=== PATIENT | male | born 1980 ===

== ENCOUNTER → 2023-07-14 12:50 | Outpatient (BNVA) | payer OTHER, SELFPAY | PROVIDERS: Referring Provider Emergency Medicine Emergency Medical Services; Visit Provider Student in an Organized Health Care Education/Training Program | DX: S83.8X1A Sprain of other specified parts of right knee, initial encounter; X58.XXXA Exposure to other specified factors, initial encounter | CPT/HCPCS: 73560; 73565; 99203 ==

== ENCOUNTER 2023-07-31 16:23 | Outpatient (CLI) | payer OTHER, SELFPAY ==
--- NOTE | 2023-07-31 16:45 | MR_ITS ---
WS: [id number] MRI RIGHT KNEE HISTORY: RIGHT knee pain for 4 months. No injury. COMPARISON: Radiographs 07/14/2023 Anterior cruciate ligament: Intact. Posterior cruciate ligament: Intact. Medial collateral ligament: Intact. Posterior lateral corner structures: Intact. Medial menisci: Intact. Normal signal, size and shape. Lateral meniscus: Intact. Normal signal, size and shape. Extensor mechanism: Distal quadriceps tendon and patellar tendons are intact. Fluid and soft tissue: No joint effusion. No Zendejas's cyst. Osseous and articular structures: Patellofemoral compartment: Normal. Medial compartment: Minimal narrowing the medial compartment. There is minimal chondromalacia along t he weightbearing surface of the medial femoral condyle. This is a full-thickness defect but only judson ures approximately 2 mm. Lateral compartment: There is minimal fraying along the articular surfaces. No full-thickness cartila ge defect. No marrow edema. IMPRESSION: 1. Normal ACL. 2. No meniscal tear. 3. 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 Full-thickness 2 mm defect wi thin the cartilage.
== END 2023-07-31 16:24 | disposition home or self-care (01) ==
LOC: RAD 16:24
PROVIDERS: PCP Emergency Medicine Emergency Medical Services; Visit Provider Student in an Organized Health Care Education/Training Program
DX: M25.569 Pain in unspecified knee (principal); S83.8X9A Sprain of other specified parts of unspecified knee, initial encounter; M94.261 Chondromalacia, right knee; X58.XXXA Exposure to other specified factors, initial encounter
CPT/HCPCS: 73721

== ENCOUNTER 2024-10-31 11:42 | Emergency (ER) | payer OTHER, SELFPAY ==
[2024-10-31 12:21] VITALS: BP 125/84; PULSE 72; RESP 18; TEMP 36.6; O2SAT 94; BMI 31.0
--- NOTE | 2024-10-31 12:36 | PC.PHAR ---
patient is [facility], sent fax at [phone]
--- NOTE | 2024-10-31 12:39 | W.ED.EXTPRO ---
HPI - Extremity Problem General: Chief complaint: Extremity Injury, Upper Stated complaint: Left Shoulder Time Seen by Provider: 10/31/24 12:36 History of Present Illness: Patient is a 44-year-old male who states he woke up this morning having pain in the left side of the neck into the left trapezius muscle. Patient states he is kind of holding his arm at a 90 degree angle which helps but if he tries to raise his arm creates pain in that left shoulder. Pain is about the scapula and trapezius muscle. No pain in the actual shoulder joint. No redness, no warmth or swelling. Patient had no fall or trauma. Patient states he thinks he has a pulled muscle but he wanted to be checked out. Associated symptoms: Deny chest pain, fever(s) or rash Related Data Home Medications Medication Instructions Recorded Confirmed calcium carbonate (Antacid Ultra 400 mg PO DAILY 07/14/23 07/14/23 Strength) cetirizine 10 mg tablet (Allergy 10 mg PO DAILY PRN 07/14/23 07/14/23 Relief (cetirizine)) fluticasone propionate 50 1 spray intranasal DAILY 07/14/23 07/14/23 mcg/actuation nasal spray,suspension (Flonase Allergy Relief) meloxicam 15 mg tablet 15 mg PO DAILY 07/14/23 07/14/23 omega 4-rlv-cgy-fish oil 1,000 mg 1 cap PO DAILY 07/14/23 07/14/23 (120 mg-180 mg) capsule (Fish Oil) pantoprazole 40 mg tablet,delayed 40 mg PO DAILY 07/14/23 07/14/23 release (Protonix) Previous Rx's Medication Instructions Recorded tizanidine 4 mg capsule 4 mg PO BID PRN muscle spasticity 10/31/24 #10 caps Allergies Allergy/AdvReac Type Severity Reaction Status Date / Time No Known Allergies Allergy Verified 10/31/24 12:27 Review of Systems Const: Denies: fever(s) or body aches Eyes: Denies: change in vision or eye discomfort ENMT: Denies: throat pain or nasal congestion Card: Denies: chest pain or lightheadedness Resp: Denies: dyspnea or wheezing GI: Denies: abdominal pain or nausea : Denies: difficulty urinating or dysuria Musc: Denies: extremity pain Skin/Breast: Denies: rash or sores Neuro: Denies: weakness in extremities or sensory changes PFSH ED PFSH: Social History (Updated 07/14/23 @ 13:02 by Ann Valdez LPN) Smoking and tobacco/nicotine status: former use of tobacco/nicotine Alcohol intake: current Alcohol intake frequency: few times a week Physical Exam Const: COMMON NORMALS: no acute distress, patient oriented x3 and alert GENERAL APPEARANCE: cooperative HENMT: COMMON NORMALS: normocephalic and atraumatic HEAD & SCALP: normocephalic and atraumatic Eye: COMMON NORMALS: Equal, round and reactive pupils present and EOMs intact bilaterally PUPIL: Yes Equal, round and reactive pupils present Neck/C-Spine: COMMON NORMALS: full ROM and supple OTHER: Patient states some tenderness in the left paraspinous muscle. No pain in the C-spine or central neck. Chest: COMMONS NORMALS: normal inspection of the chest Resp: COMMON NORMALS: normal respiratory effort and clear to auscultation bilaterally AUSCULTATION: clear to auscultation bilaterally Cardio: COMMON NORMALS: regular rate and regular rhythm RATE: regular rate RHYTHM: regular rhythm GI: COMMON NORMALS: Normal to inspection, nondistended, normoactive bowel sounds present and non-tender : COMMON NORMALS: Yes no CVA tenderness BLADDER/KIDNEY EXAM: Yes no CVA tenderness Back/Pelvis: COMMON NORMALS: no CVA tenderness and thoracic and lumbar spine normal to inspection Extremity: COMMON NORMALS: normal to inspection, full ROM and no pedal edema NARRATIVE EXTREMITY EXAM: Patient has some pain in the left trapezius muscle radiating into the left shoulder. No pain in the shoulder itself. No redness, warmth or swelling noted. No neurologic deficits. Good distal pulses. Neuro: COMMON NORMALS: patient oriented x3 and no focal motor deficits SENSORIUM/ORIENTATION: Yes alert Psych: COMMON NORMALS: cooperative Skin: COMMON NORMALS: no rashes or lesions noted GENERAL SKIN EXAM: no rashes or lesions noted Course Vital Signs: Vital signs: Vital Signs Temperature 97.8 F 10/31/24 12:21 Pulse Rate 75 10/31/24 13:46 Respiratory Rate 18 10/31/24 13:46 Blood Pressure 112/74 10/31/24 13:46 Pulse Oximetry 95 10/31/24 13:46 Oxygen Delivery Me thod Room Air 10/31/24 13:46 MDM - Extremity (Nontraumatic) Medical Decision Making Patient pain consistent with musculoskeletal pain. Patient pain reproducible in the trapezius muscle to the paraspinous muscles. Patient has full range of motion of shoulder. No pain into the chest. Patient better with Flexeril. Chest x-ray shows no acute finding. Will treat with Flexeril and he has ibuprofen at home. XR interpretation done by ED provider, pending radiology final review Discharge Plan Discharge Patient Disposition: Home Clinical Impression: Muscle strain Condition: Stable Prescriptions: New tizanidine 4 mg capsule 4 mg PO BID PRN (Reason: muscle spasticity) Qty: 10 0RF No Action meloxicam 15 mg tablet 15 mg PO DAILY pantoprazole [Protonix] 40 mg tablet,delayed release (DR/EC) 40 mg PO DAILY cetirizine [Allergy Relief (cetirizine)] 10 mg tablet 10 mg PO DAILY PRN fluticasone propionate [Flonase Allergy Relief] 50 mcg/actuation spray,suspension 1 spray intranasal DAILY Rx Instructions: administer into each nostril calcium carbonate [Antacid Ultra Strength] 400 mg calcium (1,000 mg) tablet,chewable 400 mg PO DAILY omega 8-hkb-ihx-fish oil [Fish Oil] 1,000 mg (120 mg-180 mg) capsule 1 cap PO DAILY Discharge Orders: Discharge ED (Routine); Ordered 10/31/24 Ordered By: Reese Kyle Referrals: Tarik Rogers DO [Primary Care Provider] - Discharge Diet: Usual diet Discharge Activity: Increase activity as tolerated Patient Instructions: Pain Management, Musculoskeletal Pain (ED) Activity Restrictions/Additional Instructions: Take medication as prescribed. Recommend taking her anti-inflammatories for the next few days. Can apply heat to the area, IcyHot, lidocaine patches. Coding Level of Care Code ED [employer] for [employer] Cheng
--- NOTE | 2024-10-31 12:57 | XRR_ITS ---
PROCEDURE INFORMATION: Exam: XR Left Shoulder Exam date and time: 10/31/2024 1:00 PM Age: 44 years old Clinical indication: Pain; Shoulder; Left; Additional info: Woke up with left shoulder pain, no known injury TECHNIQUE: Imaging protocol: Radiologic exam of the left shoulder. Views: 2 or more views. COMPARISON: No relevant prior studies available. FINDINGS: Bones/joints: Mild degenerative changes of the acromioclavicular and glenohumeral joint. No fracture or dislocation. No acute osseous or joint abnormality. Soft tissues: Normal. XR/XR shoulder LT min 2V* [id number] IMPRESSION: No acute findings.
[2024-10-31] MEDS: cyclobenzaprine 10 mg Tablet PO (13:44)
[2024-10-31 13:46] VITALS: BP 112/74; PULSE 75; RESP 18; O2SAT 95
[2024-10-31 14:08] VITALS: BP 116/82; PULSE 68; O2SAT 97
== END 2024-10-31 14:09 | disposition home or self-care (01) ==
PROVIDERS: Emergency Provider Emergency Medicine; PCP Emergency Medicine Emergency Medical Services
DX: S46.812A Strain of other muscles, fascia and tendons at shoulder and upper arm level, left arm, initial encounter (principal); X58.XXXA Exposure to other specified factors, initial encounter
CPT/HCPCS: 12345; 73030; 99283